=== PATIENT | male | born 1975 | race Hispanic/Latino ===

== ENCOUNTER 2017-06-03 09:50 | Inpatient (IN) | payer BC, MEDICARE ==
[2017-06-03 09:57] VITALS: BMI 33.9
--- NOTE | 2017-06-03 10:25 | ED PDOC ---
Arrival/HPI - General Historian: Patient - History of Present Illness Time/Duration: < week Context: Home <Abimbola Bunn P - Last Filed: 06/03/17 12:43> <Gregory Garrison - Last Filed: 06/03/17 13:32> - General Chief Complaint: Psychiatric Evaluation Time Seen by Provider: 06/03/17 09:55 - History of Present Illness Narrative History of Present Illness (Text): 06/03/17 10:09 This 42 yo male with pmh depression, anxiety, presents to this ED BIBA for evaluation of suicidal ideation x 5 days. Patient admits symptoms are chronic, but it has worsen last 5 days. Patient stated he has tried to hurts himself by taking multiple sleeping pills, and by trying to cut left right forearm. Patient has spent multiple hours in his bathroom contemplating the possibility to "kill" himself. He stated that thinking who is going to take care his son, and what his parents would think if he hurts himself, he is constantly analysing. Patient denies HI, paranoia, hallucination or substance abuse. Patient called insurance carrier regarding Psychiatric coverage. He spoke with insurance personnel over the phone about his symptoms. Insurance personnel called Police and ambulance. Denies other complains. (Abimbola Bunn) Past Medical History - Provider Review Nursing Documentation Reviewed: Yes - Infectious Disease Hx of Infectious Diseases: None - Tetanus Immunization Tetanus Immunization: Unknown - Pulmonary Hx Asthma: Yes - Psychiatric Hx Psychophysiologic Disorder: No Hx Substance Use: No - Past Surgical History Past Surgical History: No Previous - Anesthesia Hx Anesthesia: No - Suicidal Assessment Feels Threatened In Home Enviroment: No <Abimbola Bunn P - Last Filed: 06/03/17 12:43> Family/Social History - Physician Review Nursing Documentation Reviewed: Yes Family/Social History: No Known Family HX Smoking Status: Never Smoked Hx Alcohol Use: No Hx Substance Use: No <Abimbola Bunn P - Last Filed: 06/03/17 12:43> Allergies/Home Meds <Abimbola Bunn P - Last Filed: 06/03/17 12:43> <Gregory Garrison - Last Filed: 06/03/17 13:32> Allergies/Adverse Reactions: Allergies No Known Allergies Allergy (Verified 06/03/17 10:04) Home Medications: Home Meds Medication Instructions Recorded Confirmed No Known Home Med 06/03/17 06/03/17 Review of Systems - Review of Systems Constitutional: Normal. absent: Fatigue, Weight Change, Fevers Eyes: Normal ENT: Normal Respiratory: Normal. absent: SOB, Cough Cardiovascular: Normal. absent: Chest Pain, Palpitations, Syncope Gastrointestinal: Normal. absent: Abdominal Pain, Nausea, Vomiting Genitourinary Male: Normal. absent: Dysuria, Frequency, Hematuria Musculoskeletal: Normal Skin: Normal. absent: Rash Neurological: Normal. absent: Headache, Dizziness Endocrine: Normal Hemo/Lymphatic: Normal Psychiatric: Depression, Suicidal Ideation <Bunn,Nahim P - Last Filed: 06/03/17 12:43> Physical Exam Temperature: Afebrile Blood Pressure: Normal Pulse: Regular Respiratory Rate: Normal Appearance: Positive for: Well-Appearing, Non-Toxic, Comfortable Pain Distress: None Mental Status: Positive for: Alert and Oriented X 3 - Systems Exam Head: Present: Atraumatic, Normocephalic Pupils: Present: PERRL Extroacular Muscles: Present: EOMI Conjunctiva: Present: Normal Mouth: Present: Moist Mucous Membranes Neck: Present: Normal Range of Motion Respiratory/Chest: Present: Clear to Auscultation, Good Air Exchange. No: Respiratory Distress, Accessory Muscle Use Cardiovascular: Present: Regular Rate and Rhythm, Normal S1, S2. No: Murmurs Abdomen: Present: Normal Bowel Sounds. No: Tenderness, Distention, Peritoneal Signs Back: Present: Normal Inspection. No: CVA Tenderness Upper Extremity: Present: Normal Inspection, Normal ROM, NORMAL PULSES, Neurovascularly Intact, Capillary Refill < 2s. No: Cyanosis, Edema Lower Extremity: Present: Normal Inspection. No: Edema Neurological: Present: GCS=15, CN II-XII Intact, Speech Normal Skin: Present: Warm, Dry, Normal Color. No: Rashes Psychiatric: Present: Alert, Oriented x 3, Depressed Mood, Suicidal Ideation <Bunn,Nahim P - Last Filed: 06/03/17 12:43> Medical Decision Making Re-evaluation Time: 12:30 Reassessment Condition: Re-examined, Improved - Lab Interpretations I have reviewed the lab results: Yes Interpretation: No clinic. lab abnormalty <Bunn,Nahim P - Last Filed: 06/03/17 12:43> <Gregory Garrison - Last Filed: 06/03/17 13:32> ED Course and Treatment: 06/03/17 12:25 PES screener recommended psychiatric admission (Abimbola Bunn) 06/03/17 12:21 I was available for consultation during PA evaluation. The chart reviewed by me , and I agree with disposition. The documented history was done by the physician trauma director. The documented physical exam was done by physician trauma director. The documented procedures were done by physician trauma director. seen by Shilpa from [facility], states to admit to behavioral health, Dr. Maurer' s service (Gregory Garrison) - Lab Interpretations Lab Results: 06/03/17 10:26 06/03/17 10:26 Lab Results 06/03/17 10:26: Alcohol, Quantitative < 10 06/03/17 10:26: Salicylates < 1 L, Acetaminophen < 10.0 L 06/03/17 10:26: Urine Opiates Screen Negative, Urine Methadone Screen Negative, Ur Barbiturates Screen Negative, Ur Phencyclidine Scrn Negative, Ur Amphetamines Screen Negative, U Benzodiazepines Scrn Negative, U Oth Cocaine Metabols Negative, U Cannabinoids Screen Negative 06/03/17 10:26: Sodium 142, Potassium 3.9, Chloride 105, Carbon Dioxide 24, Anion Gap 17, BUN 20, Creatinine 1.0, Est GFR ( Amer) > 60, Est GFR (Non- Af Amer) > 60, Random Glucose 105, Calcium 9.7, Total Bilirubin 1.2, AST 42, ALT 69 H, Alkaline Phosphatase 96, Total Protein 7.9, Albumin 4.7, Globulin 3.2 , Albumin/Globulin Ratio 1.5 06/03/17 10:26: Urine Color Yellow, Urine Appearance Clear, Urine pH 6.0, Ur Specific [place] 1.020, Urine Protein Negative, Urine Glucose (UA) Negative, Urine Ketones Trace H, Urine Blood Trace-lysed H, Urine Nitrate Negative, Urine Bilirubin Negative, Urine Urobilinogen 0.2, Ur Leukocyte Esterase Negative, Urine RBC 0 - 2, Urine WBC 0 - 2, Ur Epithelial Cells 0 - 2, Calcium Oxalate Crystal Mod, Urine Bacteria Trace 06/03/17 10:26: WBC 7.3 D, RBC 5.34, Hgb 15.6, Hct 45.9, MCV 86.0, MCH 29.2, MCHC 34.0, RDW 13.2, Plt Count 183, MPV 11.6 H, Gran % 68.2 H, Lymph % (Auto) 22.3, [place] % (Auto) 7.6 H, Eos % (Auto) 1.4 L, Baso % (Auto) 0.5, Gran # 4.97, Lymph # 1.6, [place] # 0.6, Eos # 0.1, Baso # 0.04 - RAD Interpretation Narrative RAD Interpretations (Text): 06/03/17 10:34 Chest X-rays: No acute disease (Abimbola Bunn) Radiology Orders: 06/03/17 10:19 CHEST PORTABLE [RAD] Stat Disposition/Present on Arrival - Present on Arrival Any Indicators Present on Arrival: No History of DVT/PE: No History of Uncontrolled Diabetes: No Urinary Catheter: No History of Decub. Ulcer: No History Surgical Site Infection Following: None - Disposition Have Diagnosis and Disposition been Completed?: Yes Patient Plan: Admission <Abimbola Bunn - Last Filed: 06/03/17 12:43> - Disposition Disposition Time: 12:22 <Gregory Garrison - Last Filed: 06/03/17 13:32> - Disposition Diagnosis: Depression with suicidal ideation Disposition: HOSPITALIZED Patient Problems: Current Active Problems Problem Status Onset Depression with suicidal ideation Acute Condition: STABLE
[2017-06-03 10:35] LABS: BASO # 0.04 K/mm3 (0.0-2.0); BASO % 0.5 % (0.0-3.0); EOS # 0.1 (0.0-0.7); EOS % 1.4 % (1.5-5.0); GRAN # 4.97 (1.4-6.5); GRAN % 68.2 % (50.0-68.0); HEMOGLOBIN 15.6 gm/dL (14.0-18.0); LYMPH # 1.6 (1.2-3.4); LYMPH % 22.3 % (22.0-35.0); MEAN CORPUSCULAR HEMOGLOBIN 29.2 pg (25.0-35.0); MEAN PLATELET VOLUME 11.6 fl (7.0-11.0); MONO # 0.6 (0.1-0.6); MONO % 7.6 % (1.0-6.0); PLATELET COUNT 183 10^3/uL (120.0-450.0); RBC 5.34 10^6/uL (3.5-6.1); RED CELL DISTRIBUTION WIDTH 13.2 % (11.5-14.5); WHITE BLOOD COUNT 7.3 10^3/ul (4.5-11.0)
[2017-06-03 10:41] LABS: ALB/GLOB RATIO 1.5 (1.1-1.8); ALBUMIN 4.7 g/dL (3.0-4.8); ALT/SGPT 69 U/L (7-56); AST/SGOT 42 U/L (15-59); BLOOD UREA NITROGEN 20 mg/dL (7-21); CALCIUM 9.7 mg/dL (8.4-10.5); GFR AFRICAN-AMERICAN > 60; GFR NON-AFRICAN AMERICAN > 60
[2017-06-03 10:42] LABS: URINE BILIRUBIN NEGATIVE (NEGATIVE); URINE BLOOD TRACE-LYSED (NEGATIVE); URINE GLUCOSE (UA) NEGATIVE (NEGATIVE); URINE LEUKOCYTE ESTERASE NEGATIVE Leu/uL (NEGATIVE); URINE NITRATE NEGATIVE (NEGATIVE); URINE PROTEIN NEGATIVE mg/dL (<30 mg/dL); URINE UROBILINOGEN 0.2 E.U./dL (<1 E.U./dL)
[2017-06-03 10:44] LABS: URINE APPEARANCE CLEAR (CLEAR); URINE COLOR YELLOW (YELLOW)
[2017-06-03 10:45] LABS: SALICYLATE < 1 mg/dL (2.0-20.0)
[2017-06-03 10:51] LABS: URINE BACTERIA TRACE (NEG); URINE CALCIUM OXALATE CRYSTALS MOD /hpf; URINE EPITHELIAL CELLS 0 - 2 /hpf (0-5); URINE RBC 0 - 2 /hpf (0-2); URINE WBC 0 - 2 /hpf (0-6)
[2017-06-03 10:53] LABS: ACETAMINOPHEN < 10.0 ug/ml (10.0-20.0)
[2017-06-03 10:54] LABS: BARBITURATES, UR NEGATIVE (NEGATIVE); BENZODIAZEPINES, UR NEGATIVE (NEGATIVE); OPIATES, UR NEGATIVE (NEGATIVE); PHENCYCLIDINE, UR NEGATIVE (NEGATIVE)
--- NOTE | 2017-06-03 11:34 | RAD ---
HISTORY: P[facility] eval COMPARISON: No prior. FINDINGS: LUNGS: No active pulmonary disease. PLEURA: No significant pleural effusion identified, no pneumothorax apparent. CARDIOVASCULAR: Normal. OSSEOUS STRUCTURES: No significant abnormalities. VISUALIZED UPPER ABDOMEN: Normal. OTHER FINDINGS: None. IMPRESSION: No active disease.
--- NOTE | 2017-06-03 12:42 | CARD ---
APPROVED REPORT EKG Measurement Heart [id number] <Conclusion> Normal sinus rhythm Normal ECG
[2017-06-03] MEDS ORDERED: Alum-Mag Hydrox-Simethicone Susp (30 mL) PO PRN (14:43)
[2017-06-03] MEDS ORDERED: Magnesium Hydroxide Susp 30 ml UD PO PRN (14:44)
--- NOTE | 2017-06-03 20:44 | PCM.BM ---
<LynnlaraAnibals - Last Filed: 06/03/17 20:41> Treatment Plan Problems - Problems identified on initial assessmt depression Date Initiated: 06/03/17 Time Initiated: 14:40 Assessment reference: NA Status: Active Priority: 1 Comment: sad,frustration,overwhelmed suicidal Date Initiated: 06/03/17 Time Initiated: 14:40 Assessment reference: NA Status: Active Priority: 2 Comment: superfical arm cut sleep Date Initiated: 06/03/17 Time Initiated: 14:40 Assessment reference: NA Status: Active Priority: 3 Comment: unable to sleep at night medication nonadhernece Date Initiated: 06/03/17 Time Initiated: 14:40 Assessment reference: NA Status: Active Priority: 4 Comment: has not taken medications for the last 2 years. Treatment assets and liabiliti Patient Assests: cooperative, educated, insightful, motivated, ADL independent, negotiates basic needs, strong chivo Patient Liabilities: relationship conflicts - Milieu Protocol Maintain good personal hygiene: daily Encourage regular showers, daily Assist patient to perform ADL's, every shift Remind patient to perform daily oral care Conduct patient checks and document Observation sheet: Q15 minutes Maintain personal safety: every shift Educate patient to report safety concerns to staff, every shift Monitor environment for contraband/sharps Medication safety: Monitor for expected outcome, potential side effects: every shift, Assess barriers to learning: every shift, Assess readiness for medication education: every shift Family Contact Family contact: Patient agrees to contact Family contact name: Augustine Vazquez,father [phone] and yi Ayon [phone] - Goals for Treatment Patient goals for treatment: "to be myself and not be overwhelmed by living situation and be functional" Discharge/Continuing Care - Education Needs Education Needs: Patient Medication, Patient Diagnosis/Disease Process, Patient Coping Skills, Patient Anger Management skills, Patient Community resources, Patient Activities of Daily Living, Patient Health Practices/Safety, Patient Aftercare Safety Plan - Discharge Discharge Criteria: Tolerates medication w/o severe side effects, Free of Suicidal thoughts, Normal sleep pattern <Marina Petersen - Last Filed: 06/04/17 10:53> Treatment Plan Problems - Problems identified on initial assessmt depression Date Initiated: 06/03/17 Time Initiated: 14:40 Assessment reference: NA Status: Active Priority: 1 Comment: sad,frustration,overwhelmed suicidal Date Initiated: 06/03/17 Time Initiated: 14:40 Assessment reference: NA Status: Active Priority: 2 Comment: superfical arm cut sleep Date Initiated: 06/03/17 Time Initiated: 14:40 Assessment reference: NA Status: Active Priority: 3 Comment: unable to sleep at night medication nonadhernece Date Initiated: 06/03/17 Time Initiated: 14:40 Assessment reference: NA Status: Active Priority: 4 Comment: has not taken medications for the last 2 years. Problem 2 Date Initiated: 06/03/17 Time Initiated: 14:40 Assessment reference: NA Status: Active Priority: 2 Comment: superfical arm cut Problem 3 Date Initiated: 06/03/17 Time Initiated: 14:40 Assessment reference: NA Status: Active <Ines Maurer - Last Filed: 06/04/17 14:41> - Diagnosis (1) OCD (obsessive compulsive disorder) Status: Acute Interventions: 06/04/17 14:41 Psychoeducation Psychopharmacology/adjustment of medications as needed/ monitoring possible side effects Evaluate pt on daily basis Compliance with medications and follow up appointments Suicide and homicide risk assessment and prevention, coping strategies, safety plan Relapse prevention Reduction of symptoms Improve functional status Family intervention CBT, SSRI, exposure response prevention as outpatient Supportive therapy (2) Depression with suicidal ideation Status: Acute Interventions: 06/04/17 14:41 Psychoeducation Psychopharmacology/adjustment of medications as needed/ monitoring possible side effects Evaluate pt on daily basis Compliance with medications and follow up appointments Suicide and homicide risk assessment and prevention Relapse prevention Reduction of symptoms Improve functional status Family intervention As outpatient: cognitive behavioral therapy/interpersonal psychotherapy/ psychodynamic psychotherapy/problem-solving therapy
[2017-06-04 07:46] LABS: GLUCOSE,FASTING 102 mg/dL (65-110); HDL CHOLESTEROL 37 mg/dL (29-60)
[2017-06-04 07:57] LABS: LDL CHOLESTEROL 172 mg/dL (0-129)
[2017-06-04 08:00] LABS: FREE T4 0.99 ng/dL (0.78-2.19)
--- NOTE | 2017-06-04 15:44 | PCM.PSYCH ---
Initial Psychiatric Evaluation - Initial Psychiatric Evaluation Type of Admission: Voluntary Legal Status: Capacity (PATIENT HAS CAPACITY TO SIGN CONSENT FOR TREATMENT) Chief Complaint (in patient's own words): "I was holding cutting tools at work, I was thinking to cut myself, but police came over as well as ambulance, I thought that I will fight them,, but I decided to come to the hospital, later I burst into tears" Patient's Reaction to Hospitalization: patient was admitted to the psychiatric inpatient unit for evaluation and stabilization depressive symptoms, feeling of hopelessness, helplessness, suicidal ideations, with a plan to cut himself or overdose on pills, patient wrote a goodbye letter for his family. patient wants to get better, wants to be admitted to the psych unit, be on medication, wants to get therapy possible family sessions. History of Present Illness and Precipitating Events: shortly pt is 42 yo male with pmh OCD, possible learning disability (dyslexia), h/o ADHD, h/o depression, anxiety, no previous psychiatric admissions, ? 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 Earlier that day pt called insurance company looking for the psych provider and during the interview pt expressed thoughts of harming self and insurance billing clerk called 911. pt was seen and examined today with the medical student,, patient presented to have "personal hygiene, good ADLs, patient was calm, corporative, talkative, flat affect, difficulty to stay focus, difficulty to concentrate, bruit process was circumstantial and tangential. Patient reported that for the past 4 weeks he was feeling more depressed than usual, patient reported feeling hopeless, helpless as well as guilty in regards of not being able to provide for his family even the patient works full-time as well as "decent salary. Patient reported that family is overwhelmed with the care of his 8 year old son and he and his fiance is constantly fighting over small things. Patient reported that for the past couple of weeks he was thinking either to cut his wrists, overdose on medications, "maybe I shouldn't be here anymore". pt was withholding info as per ED documentation pt "has spent multiple hours in his bathroom contemplating the possibility to "kill" himself" (pt was not shearing this information with this telegraphic typewriter operator chief). pt was withdrawn from family and his regular activities for the past two weeks. pt also didn't brought good by letter to this telegraphic typewriter operator chief attention, pt's father faxed 4pages of good by letter to the unit, it was filled into the chart. when pt was asked about it, pt said that on Wednesday05/31/17 he had a "big fight with my fiance and I was overwhelmed", pt was able to read it to this telegraphic typewriter operator chief ( handwriting was bad and this telegraphic typewriter operator chief wasn't able to read it). basically pt was apologizing to his family, pt said to his fiance "our son needs to have mom, sorry I cannot be here anymore/ I have to go now", when was asked what did he mean, pt said "may be to may be just be ". pt reported to have OCD, "I was always like that". pt also reported being dx with dyslexia Pt denied using drugs, denied alcohol consumption, denies smoking cigarettes. pt reported that he was not able to sleep "for years", pt said that last night "i slept very well, I don't even remember such a deep sleep". pt reported to have racing thoughts, obviously speech was overproductive. pt contracted for safety, seems cares about his family, "my son is the best thing ever happened to me". Family h/o: pt was adopted by his parents at age of 7, pt knows that his biological father was an alcoholic. adopted parents are "very good, I love them so much, they both are psychologists ". pt denied abuse in the past. past psych h/o: "I was always been hyperactive", r/o ADHD, pt has accommodation at school "I could take extra time to read the text and my grades went up", pt was prescribed "black pill", pt has "no sex drive, I did not take it, I was feeling dissociated on it", about a year ago pt bought a 100$worth of medicine ( tylenol PM, sleeping aid), but "I changed my mind, I didn't take it". 06/03/17 10:26 06/03/17 10:26 Lab Results 06/04/17 06:50: Free T4 0.99, TSH 3rd Generation 0.63 06/04/17 06:50: Fasting Glucose 102, Triglycerides 100, Cholesterol 223 H, LDL Cholesterol Direct 172 H, HDL Cholesterol 37 06/03/17 10:26: Alcohol, Quantitative < 10 06/03/17 10:26: Salicylates < 1 L, Acetaminophen < 10.0 L 06/03/17 10:26: Urine Opiates Screen Negative, Urine Methadone Screen Negative, Ur Barbiturates Screen Negative, Ur Phencyclidine Scrn Negative, Ur Amphetamines Screen Negative, U Benzodiazepines Scrn Negative, U Oth Cocaine Metabols Negative, U Cannabinoids Screen Negative 06/03/17 10:26: Sodium 142, Potassium 3.9, Chloride 105, Carbon Dioxide 24, Anion Gap 17, BUN 20, Creatinine 1.0, Est GFR ( Amer) > 60, Est GFR (Non- Af Amer) > 60, Random Glucose 105, Calcium 9.7, Total Bilirubin 1.2, AST 42, ALT 69 H, Alkaline Phosphatase 96, Total Protein 7.9, Albumin 4.7, Globulin 3.2 , Albumin/Globulin Ratio 1.5 06/03/17 10:26: Urine Color Yellow, Urine Appearance Clear, Urine pH 6.0, Ur Specific [place] 1.020, Urine Protein Negative, Urine Glucose (UA) Negative, Urine Ketones Trace H, Urine Blood Trace-lysed H, Urine Nitrate Negative, Urine Bilirubin Negative, Urine Urobilinogen 0.2, Ur Leukocyte Esterase Negative, Urine RBC 0 - 2, Urine WBC 0 - 2, Ur Epithelial Cells 0 - 2, Calcium Oxalate Crystal Mod, Urine Bacteria Trace 06/03/17 10:26: WBC 7.3 D, RBC 5.34, Hgb 15.6, Hct 45.9, MCV 86.0, MCH 29.2, MCHC 34.0, RDW 13.2, Plt Count 183, MPV 11.6 H, Gran % 68.2 H, Lymph % (Auto) 22.3, [place] % (Auto) 7.6 H, Eos % (Auto) 1.4 L, Baso % (Auto) 0.5, Gran # 4.97, Lymph # 1.6, [place] # 0.6, Eos # 0.1, Baso # 0.04 Vital Signs Temp Pulse Resp BP Pulse Ox 06/04/17 07:22 98.2 F 81 20 131/93 H 06/03/17 15:50 84 142/102 H 06/03/17 15:39 18 06/03/17 12:23 98.2 F 79 18 134/80 97 06/03/17 09:56 98.5 F 79 18 143/85 99 medical h/o: asthma, ? sleep apnea, pt has superficial cut on his right forearm , reported cut on Wednesday05/31/17 Current Medications: Active Medications Generic Name Dose Route Start Last Admin Trade Name Freq PRN Reason Stop Dose Admin Acetaminophen 650 mg 06/03/17 14:42 Tylenol 325mg Tab PO Q6H PRN Pain, Mild (1-3) Al Hydrox/Mg Hydrox/Simethicone 30 ml 06/03/17 14:43 Maalox Plus 30 Ml PO DAILY PRN Indigestion / Heartburn Clonazepam 0.5 mg 06/03/17 17:24 Klonopin PO BID PRN Anxiety Protocol Magnesium Hydroxide 30 ml 06/03/17 14:44 Milk Of Magnesia PO DAILY PRN Constipation Mirtazapine 7.5 mg 06/03/17 22:00 06/03/17 22:37 Remeron PO 7.5 mg HS ROSENDO Administration Past Psychiatric History - Past Psychiatric History Previous Treatment History: None Prior Professional Help: see HPI Prior Psychiatric Treatment: see HPI At what hospital: see HPI Duration: see HPI Nature of Treatment: see HPI Explanation of prior treatment: see HPI History of Abuse: see HPI History of ETOH/Drug Use: see HPI History of Family Illness: see HPI Pertinent Medical Hx (Current Medical&Sleep Prob, Allergies): Allergies Allergy/AdvReac Type Severity Reaction Status Date / Time No Known Allergies Allergy Verified 06/03/17 17:32 No Known Home Med 06/03/17 Review of Systems - Review of Systems Systems not reviewed;Unavailable: Acuity of Condition - EENT Eyes: As Per HPI Ears: As Per HPI Nose/Mouth/Throat: As Per HPI - Cardiovascular Cardiovascular: As Per HPI - Respiratory Respiratory: As Per HPI - Gastrointestinal Gastrointestinal: As Per HPI - Genitourinary Genitourinary: As Per HPI - Reproductive: Male Reproductive:Male: As Per HPI - Musculoskeletal Musculoskeletal: As Par HPI - Integumentary Integumentary: As Per HPI - Neurological Neurological: As Per HPI - Psychiatric Psychiatric: As Per HPI - Endocrine Endocrine: As Per HPI - Hematologic/Lymphatic Hematologic: As Per HPI Mental Status Examination - Personal Presentation Personal Presentation: Looks stated age - Affect Affect: Constricted - Motor Activity Motor Activity: Calm - Reliability in Providing Information Reliability in Providing Information: Fair - Speech Speech: Tangential - Mood Mood: Depressed, Anxious - Formal Thought Process Formal Thought Process: No Impairment - Cognitive Functions Orientation: Person, Place, Situation Attention/Concentration: Easily distracted Estimate of Intelligence: Average Judgement: Intact, as evidence by: Insight regarding need for hospitalization - Risk Risk: Suicidal, Self-mutilation, Diminished functioning - Strength & Assets Inventory Strength & Assets Inventory: Intelligence, Family support, Education, Employment status, Employment history, Cooperative - Limitations Limitations: Other (pt was withholding information) DSM 5 DX - DSM 5 DSM 5 Diagnosis: r/o MDD OCD r/o bipolar disorder r/o ADHD - Recommended/Plan of Treatment Treatment Recommendations and Plan of Treatment: milieu/structure/supportive therapy remeron started 7.5mg hs for depression and insomnia medical consult appreciated pulmonology consult for sleep apnea and asthma family involvement family sessions SW evaluation will monitor closely Projected ELOS: 5days Prognosis: guarded Discharge Plan and Discharge Criteria: Pt will be not depressed or manic, will be more hopeful, will be not psychotic or anxious, will be not having thoughts of harming self or others, will be tolerating medications well, will not have major side effects, will be able to function, will not pose threat to self or others. - Smoking Cessation Smoking Cessation Initiated: No Reason for not providing: pt denied smoking
[2017-06-04] MEDS ORDERED: Albuterol HFA 90 mcg/actuation (8 g) IH PRN (17:12)
--- NOTE | 2017-06-05 00:13 | CP.PCM.HP ---
History of Present Illness - History of Present Illness History of Present Illness: actually it is not H/p , it is consult 06/04/17 This 42 yo male with pmh depression, anxiety, presents to this ED BIBA for evaluation of suicidal ideation x 5 days. Patient admits symptoms are chronic, but it has worsen last 5 days. Patient stated he has tried to hurts himself by taking multiple sleeping pills, and by trying to cut left right forearm. Patient has spent multiple hours in his bathroom contemplating the possibility to "kill" himself. He stated that thinking who is going to take care his son, and what his parents would think if he hurts himself, he is constantly analysing. Patient denies HI, paranoia, hallucination or substance abuse. Patient called insurance carrier regarding Psychiatric coverage. He spoke with insurance personnel over the phone about his symptoms. Insurance personnel called Police and ambulance. Denies other complains. seen and examined in the treatment room Present on Admission - Present on Admission Any Indicators Present on Admission: No Review of Systems - Constitutional Constitutional: As Per HPI - EENT Eyes: As Per HPI Ears: As Per HPI Nose/Mouth/Throat: As Per HPI - Cardiovascular Cardiovascular: As Per HPI - Respiratory Respiratory: As Per HPI - Gastrointestinal Gastrointestinal: As Per HPI - Genitourinary Genitourinary: As Per HPI - Reproductive: Male Reproductive:Male: As Per HPI - Musculoskeletal Musculoskeletal: As Per HPI - Neurological Neurological: As Per HPI - Psychiatric Psychiatric: As Per HPI - Endocrine Endocrine: As Per HPI - Hematologic/Lymphatic Hematologic: As Per HPI Past Patient History - Infectious Disease Hx of Infectious Diseases: None - Tetanus Immunizations Tetanus Immunization: Unknown - Past Social History Smoking Status: Never Smoked - CARDIAC Hx Cardiac Disorders: No Hx Angina: No Hx Atrial Fibrillation: No Hx Hypertension: No - PULMONARY Hx Asthma: Yes Hx Bronchitis: No Hx Chronic Obstructive Pulmonary Disease (COPD): No Hx Emphysema: No Hx Lung Cancer: No Hx Pneumonia: No Hx Pulmonary Edema: No Hx Pulmonary Embolism: No Hx Respiratory Aspiration: No Hx Respiratory Tract Infection: No Hx Sleep Apnea: No Hx Tuberculosis: No - NEUROLOGICAL Hx Neurological Disorder: No Hx Alzheimer's Disease: No HX Cerebrovascular Accident: No Hx Dementia: No Hx Dizziness: No Hx Meningitis: No Hx Migraine: No Hx Multiple Sclerosis: No Hx Paralysis: No Hx Parkinson's Disease: No Hx Seizures: No Hx Syncope: No Hx Transient Ischemic Attacks (TIA): No Hx Vertigo: No - HEENT Hx HEENT Problems: No - RENAL Hx Chronic Kidney Disease: No Hx Kidney Stones: No Hx Neurogenic Bladder: No Hx Pyelonephritis: No Hx Renal (Kidney) Cancer: No Hx Renal Failure: No - ENDOCRINE/METABOLIC Hx Endocrine Disorders: No - HEMATOLOGICAL/ONCOLOGICAL Hx Blood Disorders: No Hx Cancer: No Hx Human Immunodeficiency Virus (HIV): No - INTEGUMENTARY Hx Dermatological Problems: No - MUSCULOSKELETAL/RHEUMATOLOGICAL Hx Musculoskeletal Disorders: No Hx Falls: No Hx Fractures: No Hx Gout: No - GASTROINTESTINAL Hx Gastrointestinal Disorders: No - GENITOURINARY/GYNECOLOGICAL Hx Genitourinary Disorders: No Hx Sexually Transmitted Disorders: No - PSYCHIATRIC Hx Psychophysiologic Disorder: No Hx Anxiety: Yes Hx Bipolar Disorder: No Hx Depression: Yes Hx Emotional Abuse: No Hx Physical Abuse: No Hx Schizophrenia: No Hx Sexual Abuse: No Hx Substance Use: No - SURGICAL HISTORY Hx Surgeries: No - ANESTHESIA Hx Anesthesia: No Meds Allergies/Adverse Reactions: Allergies Allergy/AdvReac Type Severity Reaction Status Date / Time No Known Allergies Allergy Verified 06/03/17 17:32 Physical Exam - Constitutional Appears: Well - Head Exam Head Exam: ATRAUMATIC, NORMAL INSPECTION, NORMOCEPHALIC - Eye Exam Eye Exam: EOMI, Normal appearance, PERRL Pupil Exam: NORMAL ACCOMODATION, PERRL - ENT Exam ENT Exam: Mucous Membranes Moist, Normal Exam - Neck Exam Neck exam: Positive for: Normal Inspection - Respiratory Exam Respiratory Exam: Clear to Auscultation Bilateral, NORMAL BREATHING PATTERN - Cardiovascular Exam Cardiovascular Exam: REGULAR RHYTHM - GI/Abdominal Exam GI & Abdominal Exam: Normal Bowel Sounds, Soft. absent: Tenderness - Rectal Exam Rectal Exam: NORMAL INSPECTION - Exam Exam: Circumcision, NORMAL INSPECTION External exam: NORMAL EXTERNAL EXAM Speculum exam: NORMAL SPECULUM EXAM Bimanual exam: NORMAL BIMANUAL EXAM - Extremities Exam Extremities exam: Positive for: normal inspection - Back Exam Back exam: NORMAL INSPECTION - Neurological Exam Neurological exam: Alert, CN II-XII Intact, Normal Gait, Oriented x3, Reflexes Normal - Psychiatric Exam Psychiatric exam: Normal Affect, Normal Mood - Skin Skin Exam: Dry, Intact, Normal Color, Warm Results - Vital Signs Recent Vital Signs: Last Vital Signs Temp 98.4 F 06/04/17 16:25 Pulse 87 06/04/17 23:10 Resp 20 06/04/17 07:22 BP 135/58 L 06/04/17 16:25 Pulse Ox 97 06/03/17 12:23 - Labs Result Diagrams: 06/03/17 10:26 06/03/17 10:26 Labs: Laboratory Results - last 24 hr 06/04/17 06/04/17 06/04/17 06:50 06:50 06:50 Fasting Glucose 102 Triglycerides 100 Cholesterol 223 H LDL Cholesterol Direct 172 H HDL Cholesterol 37 Free T4 0.99 TSH 3rd Generation 0.63 RPR Nonreactive Assessment & Plan - Assessment and Plan (Free Text) Assessment: a/p MDD OCD r/o bipolar disorder r/o ADHD insomnia . asd per pt gerd , duspepsea , htn as per pt , ab, Lft .hyper cholestrolemia . will repeat lab Plan: medically pt is stable , will do hepatitis profile
--- NOTE | 2017-06-05 00:49 | CON ---
DATE: 06/04/2017 REFERRING PHYSICIAN: Dr. Ines Maurer. REASON FOR CONSULTATION: History of asthma, obstructive sleep apnea syndrome. HISTORY OF PRESENT ILLNESS: This is a 42-year-old gentleman with past medical history significant for depression/anxiety, childhood asthma was admitted to Psychiatry unit because of suicidal ideation. He had a plan for suicidal by taking sleeping pill or cutting the left forearm, so admitted to the Psychiatry. Admits to have loud snoring, has a multiple night awakening. No chest pain. No nausea, no vomiting, no diarrhea. No leg pain or leg swelling. PAST MEDICAL HISTORY: Asthma, depression/anxiety. FAMILY HISTORY: No significant cardiopulmonary disease reported. SOCIAL HISTORY: Never smoked or any alcohol use. ALLERGIES: NONE KNOWN. MEDICATIONS: He is on Klonopin 0.5 mg twice a day p.r.n., MiraLax p.r.n. basis, milk of magnesia p.r.n. basis, Remeron 7.5 mg at bedtime and Tylenol p.r.n. basis. REVIEW OF SYSTEMS: No headache. No rhinitis. Admits to have multiple night awakening, daytime sleepy and tired. No chest pain. No nausea, no vomiting, no diarrhea. No leg pain or leg swelling. PHYSICAL EXAMINATION GENERAL: In no acute distress. VITAL SIGNS: Temperature 98, heart rate 87, respiratory rate is 20, blood pressure 135/58, pulse ox 98% on room air. HEENT: Moist mucous membranes. Mallampati score is IV. NECK: Supple. No JVD. LUNGS: Fair airflow with rhonchi. HEART: S1 and S2. ABDOMEN: Soft, nontender, no organomegaly. EXTREMITIES: There is no edema. NEUROLOGIC: Awake, alert, follow simple commands. LABORATORY DATA: Shows hemoglobin 15.6, hematocrit 45.9, WBC 7.3, platelet is 183. Sodium 142, potassium 3.9, chloride 105, bicarbonate 24, BUN 20, creatinine 1.0, glucose 105, calcium is 9.7, AST 42, ALT 16 and alk phos is 96. Albumin is 4.7, triglycerides is 100, cholesterol is 223. TSH s 0.63. Urinalysis unremarkable other than trace blood and ketones. Drug screen is negative. Chest x-ray shows there is no infiltrate or effusion. IMPRESSION AND PLAN: Major depression with suicidal ideation, history of asthma, high risk for sleep apnea syndrome. According to the patient, his usually wakes him up while he is choking at night, daytime sleepy and tired. We will place him on BiPAP 08/20 tonight and see how he does. to each nostril twice a day, Ventolin HFA q. 4 hour p.r.n., fall precaution. Will need attended sleep study upon discharge as an outpatient. Thank you and we will follow with you. Shad Nayak MD
--- NOTE | 2017-06-05 09:06 | PCM.PYCHPN ---
Psychiatric Progress Note - Psychiatric Progress Note Patient seen today, length of contact: 25 min Patient Chief Complaint: "better" Problems Identified/Issues Discussed: I reviewed assessment and recent notes. Patient was interviewed at bedside. He is alert and oriented x3. Indicates he is feeling better since admission. He is more hopeful. Tolerating medications and denies any side effects, discomfort or pain. Thought process is coherent and goal directed. Affect demonstrates good range and reactivity. He is not hallucinating or demonstrating any signs of perceptual disturbance. Staff notes indicate patient has been in control and visible in the community. There were no behavioral issues overnight. Diagnostic Results: r/o MDD OCD r/o bipolar disorder r/o ADHD Medication Change: No Medical Record Reviewed: Yes Mental Status Examination - Cognitive Function Orientation: Person, Place, Situation Attention: WNL Concentration: WNL Association: WNL Fund of Knowledge: WNL - Mood Mood: Depressed (better), Anxious - Affect Affect: Other (good range and reactivity) - Speech Speech: Appropriate - Formal Thought Process Formal Thought Process: No Impairment - Suicidal Ideation Suicidal Ideation: No - Homicidal Ideation Homicidal Ideation: No Goal/Treatment Plan - Goal/Treatment Plan Progress Toward Problem(s) and Goals/Treatment Plan: * c/w current tx and plan * No new weekend labs * Vitals reviewed and noted below: Selected Entries 06/04/17 06/04/17 06/04/17 07:22 16:25 23:10 Temperature 98.2 F 98.4 F Pulse Rate 81 87 87 Respiratory 20 Rate Blood Pressure 131/93 H 135/58 L
--- NOTE | 2017-06-05 20:18 | PN ---
DATE: 06/05/2017 PULMONARY PROGRESS NOTE REFERRING PHYSICIAN: Ines Maurer MD SUBJECTIVE: The patient is sitting up in a chair. is at the bedside. Night was remarkable that he tolerated his CPAP well and used over 6 hours. No headache. No chest pain. No nausea. No vomiting. No diarrhea. No leg pain or leg swelling. PHYSICAL EXAMINATION: GENERAL: In no acute distress. VITAL SIGNS: Temperature 98, heart rate 72, respiratory rate 22, blood pressure 130/94, and pulse oximetry not available. HEENT: Moist mucous membranes. Crowded airway. Mallampati score is IV. NECK: Short and thick neck. HEART: S1 and S2. LUNGS: Fair airflow with rhonchi. ABDOMEN: Soft and nontender. No organomegaly. EXTREMITIES: There is no edema. NEUROLOGIC: Awake, alert, and follows simple commands. LABORATORY DATA: Reviewed noted cholesterol is 223. MEDICATIONS: He is on Klonopin 0.5 mg inhaled twice a day p.r.n., Maalox mg q. 4 hours p.r.n., milk of magnesia p.r.n., Remeron 7.5 mg at bedtime as tolerable p.r.n. basis, and Ventolin HFA 2 puffs q. 6 hours p.r.n. IMPRESSION AND PLAN: Major depression with suicidal ideation, probably have a sleep apnea syndrome, history of asthma, felt much better today, tolerated CPAP well last night. Spoke to the patient's at bedside. She concurred with the patient that number of awakening with choking sensation and trial of CPAP helped him and felt much better. We recommended sleep study as an outpatient, p.r.n. Ventolin, fall precautions. Thank you and we will follow with you. Shad Nayak MD
--- NOTE | 2017-06-06 01:31 | PN ---
DATE: 06/05/2017 SUBJECTIVE: The patient is a 42-year-old male. The patient is seen and examined at the bedside. Looking better. According to him, he uses BiPAP machine and he slept better. No nausea, vomiting or diarrhea. No hematuria or hematochezia. No swelling of the leg. No chest pain. No palpitations. No headache. No dizziness. PHYSICAL EXAMINATION VITAL SIGNS: Temperature is 98, heart rate 72, respiratory rate 22, blood pressure 131/90. HEENT: Normocephalic, atraumatic. Eyes; PERRLA, extraocular muscles intact, conjunctivae clear. Nose patent. Mucous membranes moist. NECK: Supple. No carotid bruits or thyromegaly. CHEST: Bilaterally symmetrical. HEART: S1 and S2 positive. LUNGS: Clear to auscultation. ABDOMEN: Soft. Bowel sounds present. No organomegaly. EXTREMITIES: No edema, no cyanosis. NEUROLOGIC: The patient is awake, alert and oriented x3. Follow simple commands. LABORATORY DATA: We do not have recent laboratory, but reviewed old labs. MEDICATIONS: Klonopin, Maalox, milk of magnesia, Remeron, and Ventolin. ASSESSMENT AND PLAN: The patient is a 42-year-old male. He was admitted in the psych with major depression with suicidal ideation, has sleep apnea syndrome as per Dr. Nayak, history of asthma, felt better. very well. The patient has hypercholesterolemia and constipation. Dr. Nayak spoke to the patient's at the bedside. According to , the patient had multiple awakening at night, choking sensation and trial of CPAP helped him and felt much better as per the patient. Dr. Nayak recommended sleep study as an outpatient. Continue Ventolin for fall precautions. Appreciated 's input and Dr. Ines Maurer for giving us an opportunity to take care of this patient. We will follow. Maureen Garza MD [facility] CENTERDorothea
--- NOTE | 2017-06-06 08:38 | PCM.PYCHPN ---
Psychiatric Progress Note - Psychiatric Progress Note Patient seen today, length of contact: 25 min Patient Chief Complaint: "better" Problems Identified/Issues Discussed: I reviewed recent notes and patient was interviewed at bedside. He is alert and oriented x3. Still indicates that he is "feeling good, feeling better" since admission. He is more hopeful and slept well last night. Tolerating medications and denies any side effects, discomfort or pain. Thought process remains coherent and goal directed. Affect demonstrates good range and reactivity. He is not hallucinating or demonstrating any signs of perceptual disturbance. Staff notes indicate patient has been in control and visible in the community. Participating in activities. There were no behavioral issues overnight. Diagnostic Results: r/o MDD OCD r/o bipolar disorder r/o ADHD Medication Change: No Medical Record Reviewed: Yes Mental Status Examination - Cognitive Function Orientation: Person, Place, Situation Attention: WNL Concentration: WNL Association: WNL Fund of Knowledge: WN - Mood Mood: Depressed (better), Anxious - Affect Affect: Other (good range and reactivity) - Speech Speech: Appropriate - Formal Thought Process Formal Thought Process: No Impairment - Suicidal Ideation Suicidal Ideation: No - Homicidal Ideation Homicidal Ideation: No Goal/Treatment Plan - Goal/Treatment Plan Progress Toward Problem(s) and Goals/Treatment Plan: * c/w current tx and plan * Appreciate f/u by Dr. Garza and Dr. Nayak on 06/05/17~recommends sleep study as an outpatient, [facility] prn, fall precautions * No new weekend labs * Vitals reviewed and noted below: Selected Entries 06/05/17 06/05/17 06/06/17 07:00 16:00 01:30 Temperature 97.1 F L Pulse Rate 72 81 76 Respiratory 22 Rate Blood Pressure 130/94 H 130/92 H
[2017-06-06 09:41] VITALS: O2SAT 78
--- NOTE | 2017-06-06 20:08 | PN ---
DATE: 06/06/2017 PULMONARY PROGRESS NOTE REFERRING PHYSICIAN: Ines Maurer MD SUBJECTIVE: His in therapy sessions. Night was unremarkable. Tolerated CPAP almost 6 to 7 hours. Feel much better, more fresher in the morning. No headache. No rhinitis. No nausea, no vomiting, and no diarrhea. No pain or leg swelling. PHYSICAL EXAMINATION: GENERAL: In no acute distress. VITAL SIGNS: Temperature is 98, heart rate is 92, respiratory rate is 18, blood pressure 144/96, pulse oximetry is 98% on BiPAP. HEENT: Moist mucous membranes. Crowded airway. Mallampati score is IV. NECK: Supple. No JVD. LUNGS: Fair airflow with some rhonchi. HEART: S1 and S2. ABDOMEN: Soft, nontender. No organomegaly. EXTREMITIES: There is no edema. NEUROLOGIC: Awake and alert. Follow simple commands. LABORATORY DATA: Reviewed. No new lab is available. MEDICATIONS: He is on Klonopin 0.5 mg twice a day p.r.n., he is on MiraLax p.r.n. basis, milk of magnesia 30 mL daily p.r.n., Remeron 7.5 mg at bedtime, Tylenol p.r.n., Ventolin HFA two puffs q. 4 hours p.r.n. IMPRESSION AND PLAN: Major depression and suicidal ideation, asthma, obstructive sleep apnea syndrome, tolerating BiPAP well and feeling better. Continue inhale bronchodilator. Continue therapy. Upon discharge, outpatient, will need attendant sleep study. Thank you and we will follow with you. Shad Nayak MD
--- NOTE | 2017-06-07 03:47 | PN ---
DATE: 06/06/2017 SUBJECTIVE: The patient is seen and examined on the bedside on 06/06/2017. According to the patient, night was unremarkable, tolerated CPAP very well, feels much better, and more fresh in the morning because he has good sleep. No headache. No dizziness. No nausea, vomiting, or diarrhea. No hematochezia. No swelling of the leg. No chest pain. No palpitations. PHYSICAL EXAMINATION: VITAL SIGNS: Temperature is 98, heart rate is 92, respiratory rate is 18, and blood pressure is 140/90. HEENT: Head is normocephalic and atraumatic. Eyes; PERRLA. Extraocular muscles intact. Conjunctivae clear. Nose patent. Mucous membranes moist. NECK: Supple. No carotid bruits. No JVD or thyromegaly. CHEST: Bilaterally symmetrical. HEART: S1 and S2 positive. LUNGS: Clear to auscultation. ABDOMEN: Soft. Bowel sounds present. No organomegaly. EXTREMITIES: No edema. No cyanosis. NEUROLOGIC: The patient is awake and alert. Follows simple commands. Moving all four extremities and oriented x3. LABORATORY DATA: We do not have recent labs, but we reviewed old labs. MEDICATIONS: Klonopin, milk of magnesia, Remeron, Tylenol, and Ventolin. ASSESSMENT AND PLAN: Mr. Herb Vazquez is a 42 years old male with history of major depression, suicidal ideation, asthma, obstructive sleep apnea syndrome, obesity, history of hypertension, very well, and feeling better. Continue inhaled bronchodilator. Continue present treatment. care of psychiatrist and we will followup. Maureen Garza MD MTDDorothea
--- NOTE | 2017-06-07 11:10 | PCM.PYCHPN ---
Psychiatric Progress Note - Psychiatric Progress Note Patient seen today, length of contact: 25 min Patient Chief Complaint: "feeling good" Problems Identified/Issues Discussed: I reviewed recent notes and patient was interviewed at bedside. He is alert and oriented x3. Still indicates that he is "feeling good, feeling more stable" since admission. He is more hopeful and slept well again last night. Tolerating medications and denies any side effects, discomfort or pain. Thought process remains coherent and goal directed. Affect demonstrates good range and reactivity. He is not hallucinating or demonstrating any signs of perceptual disturbance. Staff notes indicate patient has been in control and visible in the community. Appears motivated for improvement. He is participating in groups and activities. There were no behavioral issues overnight. Diagnostic Results: r/o MDD OCD r/o bipolar disorder r/o ADHD Medication Change: No Medical Record Reviewed: Yes Mental Status Examination - Cognitive Function Orientation: Person, Place, Situation Attention: WNL Concentration: WNL Association: WNL Fund of Knowledge: WN - Mood Mood: Depressed ("feeling good, feeling more stable"), Anxious (improving) - Affect Affect: Other (good range and reactivity) - Speech Speech: Appropriate - Formal Thought Process Formal Thought Process: No Impairment - Suicidal Ideation Suicidal Ideation: No - Homicidal Ideation Homicidal Ideation: No Goal/Treatment Plan - Goal/Treatment Plan Progress Toward Problem(s) and Goals/Treatment Plan: * c/w current tx and plan * Appreciate f/u by Dr. Garza on 06/05/17 and 06/07/17, * Appreciate f/u with Dr. Nayak on 06/05/17 and 06/06/17~recommends sleep study as an outpatient, ventolin prn, fall precautions * No new labs overnight * Vitals reviewed and noted below: Selected Entries 06/06/17 06/06/17 06/06/17 07:00 16:25 22:43 Temperature 97.8 F Pulse Rate 92 H 87 Respiratory 16 Rate Blood Pressure 132/92 H 144/96 H O2 Sat by Pulse 78 L Oximetry
--- NOTE | 2017-06-07 23:09 | PN ---
DATE: 06/07/2017 PULMONARY PROGRESS NOTE REFERRING PHYSICIAN: Ines Maurer MD SUBJECTIVE: He is out of bed to chair. Night was remarkable. Using CPAP, but did not as good night sleep as day before, but daytime he is awake and alert. No nausea. No vomiting. No diarrhea. No leg pain or leg swelling. OBJECTIVE: GENERAL: In no acute distress. VITAL SIGNS: Temperature is 98, heart rate is 92, respiratory rate is 20, blood pressure 138/97, and pulse ox is high 90s. HEENT: Moist mucous membranes. Crowded airway. Mallampati score is 4. NECK: Supple. No JVD. LUNGS: Fair airflow with rhonchi. HEART: S1, S2. ABDOMEN: Soft and nontender. No organomegaly. EXTREMITIES: No edema. NEUROLOGIC: Awake and alert. Follows simple commands. MEDICATIONS: He is on Klonopin 0.5 mg twice day, Maalox p.r.n. basis, Remeron 7.5 mg bedtime, Tylenol p.r.n. basis and Ventolin HFA 2 puffs q. 6 hours p.r.n. LABORATORY DATA: Reviewed. No new lab is available. IMPRESSION AND PLAN: Chronic obstructive lung disease, may have sleep apnea syndrome, major depression with suicidal ideation, feeling much better, using the CPAP. He will need attendant sleep study as a outpatient upon discharge. Fall precaution. Continue bronchodilators. Thank you and we will follow with you. Shad Nayak MD
--- NOTE | 2017-06-08 04:59 | PN ---
DATE: 06/07/2017 SUBJECTIVE: Patient is a 42 years old male. Patient has been examined at the bedside on 06/07/2017 looking comfortable. According to him, he used CPAP and after that he was having good sleep. Daytime, he was awake, no nausea, vomiting or diarrhea. Denies hematochezia. No swelling of the legs. No chest pain. No palpitations. No headache or dizziness. PHYSICAL EXAMINATION VITAL SIGNS: Temperature 98, heart rate 92, respiratory rate 20, blood pressure 138/97 and pulse oxymetry is high in 90s. HEENT: Head is normocephalic and atraumatic. Eyes, PERRLA. Extraocular movements are intact. Conjunctivae clear. Nose patent. NECK: Supple. No carotid bruits or thyromegaly. CHEST: Bilaterally symmetrical. HEART: S1 and S2 positive. LUNGS: Clear to auscultation. ABDOMEN: Soft. Bowel sounds present. No organomegaly. EXTREMITIES: No edema. No cyanosis. NEUROLOGIC: The patient is awake and alert. Moving all four extremities. No focal deficit. MEDICATIONS: Klonopin, Maalox, Remeron, Tylenol and Ventolin. LABORATORY DATA: We do not have recent laboratory, I reviewed old labs. ASSESSMENT AND PLAN: Mr. George Estevez is a 42 years old male with chronic obstructive lung disease, sleep apnea syndrome, major depression with suicidal ideation, borderline blood pressure, using bilevel positive airway pressure, feeling better after doing bilevel positive airway pressure. Under the care of the psychiatrist and speech specialist. Fall precautions and continue bronchodilators. Gastrointestinal and deep vein thrombosis prophylaxis. Repeat labs Maureen Garza MD
[2017-06-08 07:50] VITALS: BP 128/89; PULSE 81; RESP 20; TEMP 97.7
--- NOTE | 2017-06-08 13:26 | PCM.PYCHDC ---
Mental Status Examination - Mental Status Examination Orientation: Person, Place, Situation, Time Memory: Intact Mood: Neutral Affect: Broad (and mood congruent) Speech: Appropriate (but overproductive, as per patient it is chronic) Attention: WNL Concentration: WNL Association: WNL Fund of Knowledge: WNL Formal Thought Process: No Impairment Description of patient's judgement and insight: Pt has improved insight into mental and medical illness, pt was compliant with medications and unit rules and regulations, pt was going to groups, was calm, cooperative, socially appropriate, no behavioral incidents, no agitation, no aggression. Psychotic Thoughts and Behaviors: Pt denied v/a/t hallucinations, denied paranoid ideations, pt does not appear to be psychotic, and thought process is goal directed. Suicidal Ideation: No Current Homicidal Ideation?: No Plan: pt adamantly denied thoughts of harming self or others denied intent or plan. Discharge Summary - Discharge Note Reason for Hospitalization: patient was admitted to the psychiatric inpatient unit for evaluation and stabilization depressive symptoms, feeling of hopelessness, helplessness, suicidal ideation, with a plan to cut himself or overdose on pills, patient wrote a goodbye letter for his family. Psychiatric History (includes Medical, Family, Personal Hx): see HPI Laboratory Data: 06/03/17 10:26 06/03/17 10:26 Lab Results 06/04/17 06:50: RPR Nonreactive 06/04/17 06:50: Free T4 0.99, TSH 3rd Generation 0.63 06/04/17 06:50: Fasting Glucose 102, Triglycerides 100, Cholesterol 223 H, LDL Cholesterol Direct 172 H, HDL Cholesterol 37 06/03/17 10:26: Alcohol, Quantitative < 10 06/03/17 10:26: Salicylates < 1 L, Acetaminophen < 10.0 L 06/03/17 10:26: Urine Opiates Screen Negative, Urine Methadone Screen Negative, Ur Barbiturates Screen Negative, Ur Phencyclidine Scrn Negative, Ur Amphetamines Screen Negative, U Benzodiazepines Scrn Negative, U Oth Cocaine Metabols Negative, U Cannabinoids Screen Negative 06/03/17 10:26: Sodium 142, Potassium 3.9, Chloride 105, Carbon Dioxide 24, Anion Gap 17, BUN 20, Creatinine 1.0, Est GFR ( Amer) > 60, Est GFR (Non- Af Amer) > 60, Random Glucose 105, Calcium 9.7, Total Bilirubin 1.2, AST 42, ALT 69 H, Alkaline Phosphatase 96, Total Protein 7.9, Albumin 4.7, Globulin 3.2 , Albumin/Globulin Ratio 1.5 06/03/17 10:26: Urine Color Yellow, Urine Appearance Clear, Urine pH 6.0, Ur Specific [place] 1.020, Urine Protein Negative, Urine Glucose (UA) Negative, Urine Ketones Trace H, Urine Blood Trace-lysed H, Urine Nitrate Negative, Urine Bilirubin Negative, Urine Urobilinogen 0.2, Ur Leukocyte Esterase Negative, Urine RBC 0 - 2, Urine WBC 0 - 2, Ur Epithelial Cells 0 - 2, Calcium Oxalate Crystal Mod, Urine Bacteria Trace 06/03/17 10:26: WBC 7.3 D, RBC 5.34, Hgb 15.6, Hct 45.9, MCV 86.0, MCH 29.2, MCHC 34.0, RDW 13.2, Plt Count 183, MPV 11.6 H, Gran % 68.2 H, Lymph % (Auto) 22.3, Loup % (Auto) 7.6 H, Eos % (Auto) 1.4 L, Baso % (Auto) 0.5, Gran # 4.97, Lymph # 1.6, Loup # 0.6, Eos # 0.1, Baso # 0.04 Vital Signs Temp Pulse Resp BP Pulse Ox 06/08/17 07:49 97.7 F 81 20 128/89 06/07/17 23:22 84 06/07/17 16:20 96 H 138/97 H 06/06/17 22:43 87 06/06/17 16:25 92 H 144/96 H 06/06/17 07:00 97.8 F 16 132/92 H 78 L 06/06/17 01:30 76 06/05/17 16:00 81 130/92 H 06/05/17 07:00 97.1 F L 72 22 130/94 H 06/04/17 23:10 87 06/04/17 16:25 98.4 F 87 135/58 L 06/04/17 07:22 98.2 F 81 20 131/93 H 06/03/17 15:50 84 142/102 H 06/03/17 15:39 18 06/03/17 12:23 98.2 F 79 18 134/80 97 06/03/17 09:56 98.5 F 79 18 143/85 99 Consultations:: List each consultation separately and include: 1. Reason for request. 2. Findings. 3. Follow-up Consultations: patient was seen by Dr. Garza is a medical doctor Patient was seen by Dr. Nayak, a industrial engineering professor for sleep apnea and patient has history of asthma Summary of Hospital Course include:: 1. Description of specific treatment plan utilized for patients during their course of treatmen. 2. Summarize the time- course for resolution of acute symptoms and/or regressed behaviors. 3. Describe issues identified and worked on during hospitalization. 4. Describe medication utilized. 5. Describe medical problems identified and treated. 6. Reassessment of suicide risk Summary of Hospital Course: shortly pt is 42 yo male with pmh OCD, possible learning disability (dyslexia), h/o ADHD, h/o depression, anxiety, no previous psychiatric admissions, ? 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 Earlier that day pt called insurance company looking for the psych provider and during the interview pt expressed thoughts of harming self and medical insurance verifier called 911. initially pt presented to have a good ADLs, calm, corporative, talkative, flat affect, difficulty to stay focus, difficulty to concentrate, bruit process was circumstantial and tangential. Patient reported that for the past 4 weeks he was feeling more depressed than usual, patient reported feeling hopeless, helpless as well as guilty in regards of not being able to provide for his family even the patient works full-time as well as "decent salary. Patient reported that family is overwhelmed with the care of his 8 year old son and he and his fiance is constantly fighting over small things. Patient reported that for the past couple of weeks he was thinking either to cut his wrists, overdose on medications, "maybe I shouldn't be here anymore". pt was withholding info as per ED documentation pt "has spent multiple hours in his bathroom contemplating the possibility to "kill" himself" (pt was not shearing this information with this personal lines underwriter). pt was withdrawn from family and his regular activities for the past two weeks. pt also didn't brought good by letter to this personal lines underwriter attention, pt's father faxed 4pages of good by letter to the unit, it was filled into the chart. when pt was asked about it, pt said that on Wednesday05/31/17 he had a "big fight with my fiance and I was overwhelmed", pt was able to read it to this personal lines underwriter ( handwriting was bad and this personal lines underwriter wasn't able to read it). basically pt was apologizing to his family, pt said to his fiance "our son needs to have mom, sorry I cannot be here anymore/ I have to go now", when was asked what did he mean, pt said "may be to may be just be ". pt reported to have OCD, "I was always like that". pt also reported being dx with dyslexia Pt denied using drugs, denied alcohol consumption, denies smoking cigarettes. pt reported that he was not able to sleep "for years", pt said that last night "i slept very well, I don't even remember such a deep sleep". pt reported to have racing thoughts, obviously speech was overproductive. pt contracted for safety, seems cares about his family, "my son is the best thing ever happened to me". Family h/o: pt was adopted by his parents at age of 7, pt knows that his biological father was an alcoholic. adopted parents are "very good, I love them so much, they both are psychologists ". pt denied abuse in the past. past psych h/o: "I was always been hyperactive", r/o ADHD, pt has accommodation at school "I could take extra time to read the text and my grades went up", pt was prescribed "black pill", pt has "no sex drive, I did not take it, I was feeling dissociated on it", about a year ago pt bought a 100$worth of medicine ( tylenol PM, sleeping aid) with the plan to overdose on them, but "I changed my mind, I didn't take it". 06/03/17 10:26 06/03/17 10:26 Lab Results 06/04/17 06:50: Free T4 0.99, TSH 3rd Generation 0.63 06/04/17 06:50: Fasting Glucose 102, Triglycerides 100, Cholesterol 223 H, LDL Cholesterol Direct 172 H, HDL Cholesterol 37 06/03/17 10:26: Alcohol, Quantitative < 10 06/03/17 10:26: Salicylates < 1 L, Acetaminophen < 10.0 L 06/03/17 10:26: Urine Opiates Screen Negative, Urine Methadone Screen Negative, Ur Barbiturates Screen Negative, Ur Phencyclidine Scrn Negative, Ur Amphetamines Screen Negative, U Benzodiazepines Scrn Negative, U Oth Cocaine Metabols Negative, U Cannabinoids Screen Negative 06/03/17 10:26: Sodium 142, Potassium 3.9, Chloride 105, Carbon Dioxide 24, Anion Gap 17, BUN 20, Creatinine 1.0, Est GFR ( Amer) > 60, Est GFR (Non- Af Amer) > 60, Random Glucose 105, Calcium 9.7, Total Bilirubin 1.2, AST 42, ALT 69 H, Alkaline Phosphatase 96, Total Protein 7.9, Albumin 4.7, Globulin 3.2 , Albumin/Globulin Ratio 1.5 06/03/17 10:26: Urine Color Yellow, Urine Appearance Clear, Urine pH 6.0, Ur Specific [place] 1.020, Urine Protein Negative, Urine Glucose (UA) Negative, Urine Ketones Trace H, Urine Blood Trace-lysed H, Urine Nitrate Negative, Urine Bilirubin Negative, Urine Urobilinogen 0.2, Ur Leukocyte Esterase Negative, Urine RBC 0 - 2, Urine WBC 0 - 2, Ur Epithelial Cells 0 - 2, Calcium Oxalate Crystal Mod, Urine Bacteria Trace 06/03/17 10:26: WBC 7.3 D, RBC 5.34, Hgb 15.6, Hct 45.9, MCV 86.0, MCH 29.2, MCHC 34.0, RDW 13.2, Plt Count 183, MPV 11.6 H, Gran % 68.2 H, Lymph % (Auto) 22.3, [place] % (Auto) 7.6 H, Eos % (Auto) 1.4 L, Baso % (Auto) 0.5, Gran # 4.97, Lymph # 1.6, [place] # 0.6, Eos # 0.1, Baso # 0.04 Vital Signs Temp Pulse Resp BP Pulse Ox 06/04/17 07:22 98.2 F 81 20 131/93 H 06/03/17 15:50 84 142/102 H 06/03/17 15:39 18 06/03/17 12:23 98.2 F 79 18 134/80 97 06/03/17 09:56 98.5 F 79 18 143/85 99 medical h/o: asthma, ? sleep apnea, pt has superficial cut on his right forearm , reported cut on Wednesday05/31/17 over the course of this hospitalization patient was initiated on Remeron 7.5 mg at the nighttime for depression as well as for insomnia patient tolerated well, no side effects observed or reported. Patient was seen by industrial engineering professor, patient was found to have sleep apnea, patient was started on CPAP machine today this personal lines underwriter spent 40min with pt to assess his risk of harming self because pt wanted to be discharged as soon as possible. pt adamantly denied thoughts of harming self, pt said that "I learned a lot, I learned that sleep is very important, I was exhausted before, I am happy to be alive, I want to be with my family, I have family reunion this week, I am planning to go there with my parents". pt sounded optimistic. pt was educated about safety plan and importance to be compliant with medications and f/u appt, pt verbalized understanding. collaterals were obtained from pt's fiance by SW, pt's fiance expressed no concerns about pt's safety, was willing to accept pt back home. see [facility] notes for more detailed info. (pt denied being bullied at work, pt said he spoke to his underwriting manager and "he was very supportive"). Over the course of this hospitalization pt was attending groups, pt also had medication management, had therapeutic milieu. Overall pt improved significantly, pt's affect became brighter, pt was less depressed, has realistic future oriented plans, pt also does not appear to be psychotic, or anxious, pt was socially appropriate, no behavioral issues, pts insight improved as well and soon pt deemed to be ready for discharge. At the time of the discharge pt reported to feel "much better", was considered to pose no threat to self or others, will be following up at 's office, information about follow up appointment, time and address provided to the pt, it is patient responsibility to follow up with outpatient clinic, PMD as well as specialists (see SW note for more detailed information). In case pt will need to obtain results of studies pending at discharge pt was provided with contact information of Psychiatric Inpatient unit [phone] as well as Medical Record Department [phone]. pt was provided with prescriptions for all of medications (please see medication reconciliation form) Pt was educated about safety plan in case of worsening of symptoms or in case of suicidal or homicidal ideation call 911 or go to the nearest ER, also was educated to take meds as prescribed and stay away from drugs, pt verbalized understanding. - Diagnosis (1) OCD (obsessive compulsive disorder) Current Visit: Yes Status: Chronic Priority: Medium (2) Depression with suicidal ideation Current Visit: Yes Status: Resolved Priority: Low - Final Diagnosis (DSM 5) Condition upon Discharge: STABLE Disposition: HOME/ ROUTINE Follow-up Treatment Plan: At the time of the discharge pt reported to feel "much better", was considered to pose no threat to self or others, will be following up at 's office, information about follow up appointment, time and address provided to the pt, it is patient responsibility to follow up with outpatient clinic, PMD as well as specialists (see SW note for more detailed information). In case pt will need to obtain results of studies pending at discharge pt was provided with contact information of Psychiatric Inpatient unit [phone] as well as Medical Record Department [phone]. pt was provided with prescriptions for all of medications (please see medication reconciliation form) Pt was educated about safety plan in case of worsening of symptoms or in case of suicidal or homicidal ideation call 911 or go to the nearest ER, also was educated to take meds as prescribed and stay away from drugs, pt verbalized understanding. Prescriptions/Medication Reconciliation: Mirtazapine [Remeron] 7.5 mg PO HS #7 tab - Smoking Cessation Smoking Cessation Medication prescribed: No Reason for not providing: pt denied smoking - Antipsychotic Medications Pt discharged on 2 or more routine antipsychotic medications: No
== END 2017-06-08 15:50 | disposition home or self-care (01) | DRG 881 ==
LOC: ED 09:50 → ERH 12:28 → PSYC 13:46
PROVIDERS: ADMIT Psychiatry & Neurology Psychiatry; ATTEND Psychiatry & Neurology Psychiatry
PROC: 5A09357 Assistance with Respiratory Ventilation, Less than 24 Consecutive Hours, Continuous Positive Airway Pressure (ICD-10-PCS; principal; 2017-06-04)
PROC: 5A09457 Assistance with Respiratory Ventilation, 24-96 Consecutive Hours, Continuous Positive Airway Pressure (ICD-10-PCS; 2017-06-06)
DX: F32.9 Major depressive disorder, single episode, unspecified (principal); R45.851 Suicidal ideations; I10 Essential (primary) hypertension; F42.9 Obsessive-compulsive disorder, unspecified; K21.9 Gastro-esophageal reflux disease without esophagitis; J44.9 Chronic obstructive pulmonary disease, unspecified; G47.33 Obstructive sleep apnea (adult) (pediatric); F41.9 Anxiety disorder, unspecified; K59.00 Constipation, unspecified; E78.00 Pure hypercholesterolemia, unspecified; G47.00 Insomnia, unspecified; E66.9 Obesity, unspecified; Z68.34 Body mass index [BMI] 34.0-34.9, adult